=== PATIENT | female | born 1985 | race Caucasian/White ===

== ENCOUNTER → 2016-06-27 | Outpatient (CLI) | payer OTHER ==
[2016-06-27 14:12] LABS: MEAN CORPUSCULAR HEMOGLOBIN 31.3 pg (27.0-33.0); MEAN CORPUSCULAR HGB CONC 35.1 g/dl (32.0-36.5); RED CELL DISTRIBUTION WIDTH 12.6 % (11.5-14.5)
== END | disposition home or self-care (01) ==
LOC: M LAB 12:10
PROVIDERS: ATTEND Advanced Practice Midwife
DX: Z34.82 Encounter for supervision of other normal pregnancy, second trimester (principal); Z36 Encounter for antenatal screening of mother; Z3A.00 Weeks of gestation of pregnancy not specified

== ENCOUNTER → 2016-08-22 | Outpatient (REF) | payer OTHER | LOC: M LAB REF 13:11 | PROVIDERS: ATTEND Advanced Practice Midwife | DX: Z34.83 Encounter for supervision of other normal pregnancy, third trimester (principal) ==

== ENCOUNTER 2016-09-02 04:36 | Inpatient (IN) | payer OTHER ==
[2016-09-02] VITALS (16 sets, daily range): BP systolic 104–141; BP diastolic 54–79
[~2016-09-02] VITALS: Ht 167.6 cm; Wt 78.0 kg
[2016-09-02] MEDS ORDERED: AMPICILLIN SOD 2 GM in D5W MINI-BAG PLUS 100 ML IV ONE (05:15)
[2016-09-02] MEDS ORDERED: LR 1,000 ML IV SCH (05:57)
[2016-09-02] MEDS ORDERED: OXYTOCIN DRIP 30 UNITS in APPROPRIATE DILUENT 1 EA IV SCH ×2 (06:00→10:57)
[2016-09-02] MEDS ORDERED: FENTANYL 2MCG/ML ROPIVACAINE 0.2% IN 0.9% NACL 200ML IVBAG As Ordered ONE (08:17)
[2016-09-02] MEDS ORDERED: AMPICILLIN SOD 1 GM in D5W MINI-BAG PLUS 50 ML IV SCH (10:00)
[2016-09-02] MEDS ORDERED: FENTANYL/ROPIVACAINE/NACL BAG 200 ML EPIDURAL SCH (10:15)
[2016-09-02] MEDS ORDERED: ePHEDrine SULFATE 25 MG/5 ML(5MG/ML) SYRINGE IV PRN (10:15)
[2016-09-02] MEDS ORDERED: EPIDURAL COMMENT XX SCH (10:15)
[2016-09-02] MEDS ORDERED: REFRIGERATOR IV KEYS XX PRN (10:15)
[2016-09-02] MEDS ORDERED: EPIDURAL/PCA KEYS XX PRN (10:15)
[2016-09-02] MEDS ORDERED: diphenhydrAMINE INJ 50MG/ML VIAL (J1200) IV PRN (10:15)
[2016-09-02] MEDS ORDERED: NALOXONE INJ 0.4 MG/1 ML VIAL (J2310) IV PRN (10:15)
[2016-09-02] MEDS ORDERED: ONDANSETRON 4MG/2ML VIAL (J2405) IV PRN (10:15)
[2016-09-02] MEDS ORDERED: LACTATED RINGER'S 1000 ML IV PRN (10:15)
--- NOTE | 2016-09-02 10:30 | DN ---
DATE: 09/02/2016 TIME OF : 0930 hours GENDER: Male SCORES: 9 and 9. WEIGHT: 6 pounds 2 ounces, 2772 grams. ESTIMATED BLOOD LOSS: 300 mL ANESTHESIA: Epidural. LACERATIONS: First degree midline laceration. CORD GASES: 7.32, 7.324, base excess -4.3 and -5.1, respectively. DELIVERY NOTE: On 09/02/2016 at 0930 hours, Mrs. Milian, a 31-year-old 3, now para 2 had a spontaneous vaginal delivery of a liveborn male , scores 9 and 9, weight 6 pounds 2 ounces, 2772 grams. Head was delivered occiput anterior (OA). There was a nuchal cord, which was manually reduced, followed by delivery of shoulders and corpus. The was handed to mother with a good cry. Cord was clamped times two, was cut by the father of the baby under my direction. Cord gases and cord blood was then obtained. Placenta was then drained and delivered grossly intact. A premixed bag of 500 mL of normal saline with 30 units of Pitocin was bolused along with uterine massage until the uterus was firm. On inspection, there was a first degree midline laceration, which was repaired with #3-0 Vicryl Rapide. On reinspection, the cervix, vagina, and perineum were grossly intact and hemostatic. Mother and baby both recovered in stable condition. The couple has decided to name their son
--- NOTE | 2016-09-02 10:35 | HPE ---
DATE OF ADMISSION: 09/02/2016 REASON FOR ADMISSION: Spontaneous rupture of membrane. HISTORY OF PRESENT ILLNESS: This patient is a 31-year-old 3, para 1, who presents at 37 weeks 2 days estimated gestational age by her last menstrual period, confirmed by a first trimester ultrasound, with complaints of leakage of fluid at approximately 3 a.m. this morning. She reports some irregular contraction. Denies any vaginal bleeding and reports active movement. PAST MEDICAL HISTORY: History of depression. PAST SURGICAL HISTORY: 1. She has had two laparoscopies. 2. Loop electrosurgical excision procedure (LEEP). 3. Oral surgery. 4. Tonsillectomy. Her past obstetrical history, she is a 3, para 1. She has had one miscarriage, followed by a term vaginal delivery proven to 7 pounds 15 ounces. Medication includes vitamins. She has NO KNOWN DRUG ALLERGIES. SOCIAL HISTORY: She denies any alcohol, tobacco or drug use during the . PHYSICAL EXAMINATION: Vital signs are stable. She is afebrile. She has a category 1 heart rate tracing and irregular contractions on tocometer. General appearance is well-appearing, no acute distress. Her lungs are clear to auscultation bilaterally. Cardiovascular: Heart regular rate and rhythm. Abdomen is soft, gravid, nontender. Estimated weight (EFW) 3000 grams. Her cervical exam, she is 1 cm dilated, 75% effaced and minus 2 station, grossly ruptured. LABORATORIES: Her blood type is B positive. Antibody screen is negative. Rubella is immune. RPR is nonreactive. Hepatitis surface antigen is negative. HIV is negative. Hepatitis C is nonreactive. Chlamydia and gonorrhea screens are negative. She had a normal 1-hour Glucola of 106 and she is GBS positive. ASSESSMENT: 1. This patient is a 31-year-old 3, para 1, that presented at 37 weeks 2 days estimated gestational age with spontaneous rupture of membranes. 2. Reassuring status. 3. Group B streptococcus positive. Plan is to: 1. Admit to labor and delivery. Complete blood count (CBC), rapid plasma reagin (RPR), type and screen. 2. Antibiotics for GBS prophylaxis. 3. Anticipate spontaneous vaginal delivery.
[2016-09-02] MEDS ORDERED: IBUPROFEN 800 MG TAB PO PRN (11:00)
[2016-09-02] MEDS ORDERED: DOCUSATE SODIUM 100 MG CAP PO PRN (11:00)
[2016-09-02] MEDS ORDERED: DIBUCAINE 1% OINTMENT 30GM TOP PRN (11:00)
[2016-09-02] MEDS ORDERED: MEASLES,MUMPS,RUBELLA VACCINE INJ (MMR-II) (90707) SC SCH (11:00)
[2016-09-02] MEDS ORDERED: METHYLERGONOVINE MALEATE 0.2 MG TAB PO PRN (11:00)
[2016-09-02] MEDS ORDERED: ACETAMINOPHEN 500 MG TAB PO PRN (11:00)
[2016-09-02] MEDS ORDERED: RHOGAM 300 MCG (1500 IU) INJ (J2790) IM SCH (11:00)
[2016-09-02] MEDS: PRENATAL VITAMIN TAB PO SCH (12:57)
[2016-09-03 05:31] VITALS: BP 106/55
[2016-09-03] MEDS: PRENATAL VITAMIN TAB PO SCH (08:33)
[2016-09-03 18:12] VITALS: BP 133/64
[2016-09-04 06:00] VITALS: BP 116/57
[2016-09-04] MEDS ORDERED: ACET50TA PO (07:51)
[2016-09-04] MEDS ORDERED: PRENTAB9 PO (07:51)
[2016-09-04] MEDS ORDERED: IBUP-1114 PO (07:51)
[2016-09-04] MEDS: PRENATAL VITAMIN TAB PO SCH (08:24)
== END 2016-09-04 11:15 | disposition home or self-care (01) | DRG 775 ==
LOC: M LDO 04:36 → M LDI 04:57 → M OBS 11:50
PROVIDERS: ADMIT Obstetrics & Gynecology; ATTEND Obstetrics & Gynecology
PROC: 10E0XZZ Delivery of Products of Conception, External Approach (ICD-10-PCS; principal; 2016-09-02)
PROC: 0HQ9XZZ Repair Perineum Skin, External Approach (ICD-10-PCS; 2016-09-02)
DX: O99.824 Streptococcus B carrier state complicating childbirth (principal); Z3A.37 37 weeks gestation of pregnancy; O70.0 First degree perineal laceration during delivery; O69.81X0 Labor and delivery complicated by cord around neck, without compression, not applicable or unspecified; Z37.0 Single live birth